=== PATIENT | female | born 1990 | race Caucasian/White ===

== ENCOUNTER 2016-07-22 09:15 | Emergency (ER) | payer OTHER ==
[2016-07-22 09:33] VITALS: BP 127/67
--- NOTE | 2016-07-22 11:06 | UC ---
Throat Pain/Nasal Raudel HPI - HPI Summary HPI Summary: THREE DAYS OF COUGH CONGESTION SORE THROAT. 33 WEEKS . - History of Current Complaint Chief Complaint: UCRespiratory Stated Complaint: SORE THROAT/CONGESTION Time Seen by Provider: 07/22/16 10:19 Hx Obtained From: Patient Hx Last Menstrual Period: 11/13/15 Onset/Duration: Gradual Onset, Lasting Days, Still Present Severity: Moderate Cough: Nonproductive Associated Signs & Symptoms: Positive: Sinus Discomfort, Nasal Discharge - Epiglottits Risk Factors Epiglottis Risk Factors: Negative - Allergies/Home Medications Allergies/Adverse Reactions: Allergies Allergy/AdvReac Type Severity Reaction Status Date / Time Penicillins Allergy Hives Verified 07/22/16 09:33 PMH/Surg Hx/FS Hx/Imm Hx Previously Healthy: Yes - Surgical History Surgical History: Yes Surgery Procedure, Year, and Place: ectopic 2009 with right fallopian tube, cholecystectomy 2011, tonsils - Family History Known Family History: Positive: Other - denies FMH o fectopic Negative: Respiratory Disease - Social History Occupation: Employed Full-time Lives: With Family Alcohol Use: None Substance Use Type: None Smoking Status (MU): Former Smoker Length of Time of Smoking/Using Tobacco: 5 yrs When Did the Patient Quit Smoking/Using Tobacco: 2016 Review of Systems Constitutional: Fatigue Skin: Negative Eyes: Negative ENT: Sore Throat Respiratory: Cough Cardiovascular: Negative Gastrointestinal: Negative Genitourinary: Negative Motor: Negative Neurovascular: Negative Musculoskeletal: Negative Neurological: Negative Psychological: Negative All Other Systems Reviewed And Are Negative: Yes Physical Exam Triage Information Reviewed: Yes Appearance: Well-Appearing, No Pain Distress, Well-Nourished Vital Signs: Initial Vital Signs Temp 98.5 F 07/22/16 09:27 Pulse 108 07/22/16 09:27 Resp 16 07/22/16 09:27 BP 127/67 07/22/16 09:27 Pulse Ox 99 07/22/16 09:27 Vital Signs Reviewed: Yes Eye Exam: Normal ENT: Positive: Hearing grossly normal, Pharyngeal erythema, Nasal congestion, TMs normal Dental Exam: Normal Neck exam: Normal Neck: Positive: Supple, Nontender, No Lymphadenopathy Respiratory Exam: Normal Respiratory: Positive: Chest non-tender, Lungs clear, Normal breath sounds, No respiratory distress, No accessory muscle use Cardiovascular Exam: Normal Cardiovascular: Positive: RRR, No Murmur, Pulses Normal, Brisk Capillary Refill Abdominal Exam: Normal Abdomen Description: Positive: Nontender, No Organomegaly Musculoskeletal Exam: Normal Musculoskeletal: Positive: Strength Intact, ROM Intact Neurological Exam: Normal Psychological Exam: Normal Psychological: Positive: Normal Response To Family Skin Exam: Normal Throat Pain/Nasal Course/Dx - Differential Dx/Diagnosis Differential Diagnosis/HQI/PQRI: Sinusitis, Tonsillitis, URI Provider Diagnoses: UPPER RESPIRATORY INFECTION Discharge - Discharge Plan Condition: Stable Disposition: HOME Patient Education Materials: Upper Respiratory Infection (ED), Viral Syndrome ( ED) Referrals: Scar Payan MD [Primary Care Provider] -
== END 2016-07-22 11:07 | disposition home or self-care (01) ==
LOC: UCCORT 09:15
DX: O26.893 Other specified pregnancy related conditions, third trimester (principal); Z3A.33 33 weeks gestation of pregnancy; J06.9 Acute upper respiratory infection, unspecified; Z88.0 Allergy status to penicillin; Z87.891 Personal history of nicotine dependence
CPT/HCPCS: 87502; 87651; 99211; G0463

== ENCOUNTER 2016-11-21 13:35 | Emergency (ER) | payer OTHER ==
[2016-11-21 13:47] VITALS: BP 127/88
[2016-11-21] MEDS ORDERED: Acetaminophen TAB* 325 MG PO ONE (16:48)
--- NOTE | 2016-11-21 17:12 | UC ---
Jaime Oleary Alfonso, scribed for Gita Jimenez MD on 11/21/16 at 1635 . Abdominal Pain Female HPI - HPI Summary HPI Summary: This patient is a 26 year old F presenting to [facility] with a chief complaint of Left back and llq cramping since one week ago. The pain comes in intermittent episodes once or twice a day. The pain radiates to her back. Pt rates the pain 4 /10 in severity. Pain intermittent. Unable to get comfortable. Symptoms aggravated and alleviated by nothing. No analgesia taken. Symptoms not aggravated by breathing, no SOB. Pt reports chills, nausea (constant) increases with pain. No vomiting. Pt denies fever, loss of appetite, diarrhea, melena, cough,sob, and vaginal discharge. No discharge, no odor. Denies recent trauma. Pt delivered vaginally on 09/14/16. Denies complications with . Pt is . Pt had her first menses since the 3 days ago - very minimal - no ongoing bleeding. . Tobacco abuse disorder. FHx of renal calculi in sister. PSHx of ectopic in 2009 and cholecystectomy in 2011. Patients medication reviewed this visit. - History of Current Complaint Chief Complaint: UCAbdominalPain Stated Complaint: ABDOMEN PAIN Hx Obtained From: Patient ?: No Onset/Duration: Sudden Onset, Lasting Weeks - 1, Still Present Timing: Intermittent Episodes Lasting: - Once to twice a day. Severity Initially: Moderate Severity Currently: Moderate Pain Intensity: 4 Pain Scale Used: 0-10 Numeric Location: Discrete At: LLQ Radiates: Yes Radiates to: Back Character: Cramping Aggravating Factor(s): Nothing Alleviating Factor(s): Nothing Associated Signs and Symptoms: Positive: Nausea, Other: - Positive chills, nausea (constant), and insomnia; negative fever, loss of appetite, diarrhea, melena, and vaginal discharge.. Negative: Diaphoresis, Fever, Cough, Vomiting Allergies/Adverse Reactions: Allergies Allergy/AdvReac Type Severity Reaction Status Date / Time Penicillins Allergy Hives Verified 11/21/16 13:47 PMH/Surg Hx/FS Hx/Imm Hx Previously Healthy: Yes - Surgical History Surgical History: Yes Surgery Procedure, Year, and Place: ectopic 2009 with right fallopian tube, cholecystectomy 2011, tonsils - Family History Known Family History: Positive: Other - Positive FHx of renal calculi in sister ; neg ectopic Negative: Respiratory Disease - Social History Lives: With Family Alcohol Use: None Substance Use Type: None Smoking Status (MU): Former Smoker Length of Time of Smoking/Using Tobacco: 5 yrs When Did the Patient Quit Smoking/Using Tobacco: 2015 Review of Systems Constitutional: Chills, Other - Negative fever Skin: Negative Eyes: Negative ENT: Negative Respiratory: Negative Cardiovascular: Negative Gastrointestinal: Abdominal Pain - LLQ cramping, Nausea, Other - Negative diarrhea, and melena. Genitourinary: Other - Negative vaginal discharge. Motor: Negative Neurovascular: Negative Musculoskeletal: Negative Neurological: Other - Positive insomnia; negative loss of appetite Psychological: Negative All Other Systems Reviewed And Are Negative: Yes Physical Exam Triage Information Reviewed: Yes Appearance: Well-Appearing, No Pain Distress, Well-Nourished Vital Signs: Initial Vital Signs Temp 98.5 F 11/21/16 13:41 Pulse 81 11/21/16 13:41 Resp 18 11/21/16 13:41 BP 127/88 11/21/16 13:41 Pulse Ox 98 11/21/16 13:41 Vital Signs Reviewed: Yes Eye Exam: Normal ENT Exam: Normal Dental Exam: Normal Neck exam: Normal Respiratory: Positive: Chest non-tender, Lungs clear, Normal breath sounds, No respiratory distress, No accessory muscle use Cardiovascular: Positive: RRR, No Murmur, Pulses Normal Abdomen Description: Positive: CVA Tenderness (L) - mild, Other: - m. Negative : Nontender - mild LLQ no guarding no rebound abd soft + BS Bowel Sounds: Positive: Present Musculoskeletal Exam: Normal Neurological Exam: Normal Neurological: Positive: Alert Psychological Exam: Normal Skin Exam: Normal Diagnostics - Radiology CT A/P Radiology Interpretation Completed By: Radiologist - NO HYDRONEPHROSIS OR NEPHROLITHIASIS. Re-Evaluation - Re-Evaluation First Eval Re-Evaluation Time: 17:47 Change: Improved Comment: Pt pain improved with Tylenol. Labs and imaging studies were reviewed. Pt understands and agrees with d/c plan. Pt comfortable and in agreement with plan. Has PCP appt on Monday Abd Pain Female Course/Dx - Course Course Of Treatment: 26 year old F presents to the [facility] with a CC of Pain in LLQ with radiation to L flank x approx 1 week. Sx intermittent. Pt with nausea, no vomiting. No fevers, chills. No rash. No h/o similar. sister wth renal colic. The pain comes in intermittent episodes once or twice a day. Denies recent trauma. Pt delivered vaginally on 09/14/16. Denies complications with . Pt is . Pt had her first menses since the 3 days ago. Differential includes renal colic, musculoskeletal pain. Will give APAP ( breast feeding). urinalysis. cbc. cmp. CT a/p. If neg for stone - will d/c with pcp as pt well appearing. Pt comfortable and in agreement with plan. CT A /P reviewed. No clear etiology. pain improved. labs pending. pt has PCP f/u tomorrow. return precautions discussed. pt comfortable and in agreement with plan - Differential Dx/Diagnosis Provider Diagnoses: flank pain Discharge - Discharge Plan Condition: Stable Disposition: HOME Patient Education Materials: Flank Pain (ED) Forms: *Work Release Referrals: Scar Payan MD [Primary Care Provider] - Additional Instructions: - Okay to take tylenol every 6 hours as needed for pain. Take with food - Okay to apply moist heat to your left back - Keep your appointment with your doctor tomorrow- they will be able to review your lab results from today - If you develop increased of uncontrolled pain, vomiting, fever, chill or any other questions - call your doctor or go the emergency department The documentation as recorded by the Jaime burr Alfonso accurately reflects the service I personally performed and the decisions made by me, Gita Jimenez MD.
--- NOTE | 2016-11-21 17:27 | RAD ---
CLINICAL HISTORY: Left flank pain, microscopic hematuria COMPARISON: None TECHNIQUE: Multiple contiguous axial CT scans were obtained of the abdomen and pelvis, without intravenous contrast enhancement. Coronal and sagittal multiplanar reformations are submitted for review. Oral contrast was not administered. FINDINGS: The study is limited by the lack of intravenous contrast. This limits evaluation of the solid organs and vasculature. LUNG BASES: The lung bases are clear. LIVER: The liver is normal in shape, size, contour, and attenuation. BILE DUCTS: There is no intrahepatic or extrahepatic biliary dilatation. GALLBLADDER: The gallbladder is not visualized. Surgical clips are noted in the gallbladder fossa. PANCREAS: The pancreas is normal, without mass or ductal dilatation. SPLEEN: Normal in size and appearance. UPPER GI TRACT: Evaluation of the gastrointestinal tract is limited by incomplete gastric distention. The upper GI tract is unremarkable. SMALL BOWEL AND MESENTERY: The small bowel is normal in contour, course, and caliber. There is no obstruction or dilatation. COLON: The colon is normal in contour, course, caliber. There is no pericolonic inflammatory change. There is a tubular, vermiform, hollow viscus that is blind ending, and originates from the cecum, consistent with a normal appendix. There is no periappendiceal inflammatory change. This is best seen on coronal images 43 through 48. ADRENALS: Normal bilaterally. KIDNEYS: The kidneys are normal in shape, size, contour, and axis. There is no hydronephrosis or nephrolithiasis. BLADDER: The bladder is smooth in contour. PELVIC ORGANS: The uterus and adnexa are grossly normal for technique. AORTA: The aorta is normal. IVC: Unremarkable LYMPH NODES: There is no lymphadenopathy by size criteria. ABDOMINAL WALL: There is no evidence for abdominal wall hernia. BONES AND SOFT TISSUES: There are mild diffuse degenerative changes. OTHER: None IMPRESSION: NO HYDRONEPHROSIS OR NEPHROLITHIASIS.
[2016-11-22 11:00] LABS: Hematocrit 42 % (35-47); Hemoglobin 13.7 g/dl (12.0-16.0); Mean Corpuscular HGB Conc 33 g/dl (31-36); Mean Corpuscular Hemoglobin 31 pg (27-31); Mean Corpuscular Volume 93 fL (80-97); Mean Platelet Volume 9 um3 (7.4-10.4); Red Blood Count 4.45 10^6/ul (4.0-5.4); Red Cell Distribution Width 15 % (10.5-15)
[2016-11-22 11:39] LABS: Albumin 4.4 g/dL (3.2-5.2); BUN/Creatinine Ratio 24.7 (8-20); Calcium 9.2 mg/dL (8.6-10.3); EGFR African American 102.4 (>60); EGFR Non-African American 79.6 (>60); Globulin 2.4 g/dL (2-4); Potassium 3.9 mmol/L (3.5-5.0); Total Bilirubin 0.3 mg/dL (0.2-1.0); Total Protein 6.8 g/dL (6.4-8.9)
== END 2016-11-21 18:00 | disposition home or self-care (01) ==
LOC: UCEAST 13:35
DX: R10.9 Unspecified abdominal pain (principal); Z87.891 Personal history of nicotine dependence
CPT/HCPCS: 36415; 74176; 80053; 81003; 84702; 85025; 99211; A9270-GY; G0463

== ENCOUNTER 2016-11-25 11:50 | Emergency (ER) | payer OTHER ==
[2016-11-25] MEDS ORDERED: Ondansetron ODT TAB* 4 MG PO ONE (12:45)
[2016-11-25] MEDS ORDERED: Promethazine TAB* 25 MG PO ONE (13:04)
[2016-11-25] MEDS ORDERED: Ketorolac INJ* 30 MG/ML 1 ML VIAL IV PUSH ONE (13:43)
[2016-11-25 13:46] VITALS: BP 146/91
[2016-11-25] MEDS ORDERED: NS 0.9% 1000 ML* 1,000 ML IV ONE (13:47)
--- NOTE | 2016-11-25 13:56 | UC ---
Abdominal Pain Female HPI - HPI Summary HPI Summary: TWO WEEKS OF DIFFUSE WORSENING ABDOMINAL PAIN AND INTERMITTENT FEVER. HAS HAD WORSENING NAUSEA. SEEN HERE ON 11/[address] HAD VAGINAL 10 WEEKS AGO; CURRENTLY BREAST FEEDING. HISTORY OF ECTOPIC IN 2009. - History of Current Complaint Chief Complaint: UCAbdominalPain Stated Complaint: ABDOMINAL PAIN,NAUSEA Time Seen by Provider: 11/25/16 12:38 Hx Obtained From: Patient Hx Last Menstrual Period: Breast feeding Onset/Duration: Gradual Onset, Lasting Weeks, Still Present Severity Initially: Moderate Severity Currently: Moderate Location: Diffuse Radiates: No Character: Burning, Cramping Aggravating Factor(s): Movement Alleviating Factor(s): Nothing Associated Signs and Symptoms: Positive: Diaphoresis, Fever, Nausea, Vomiting. Negative: Cough, Chest Pain, Blood in Stool, Urinary Symptoms, Vaginal Bleeding , Vaginal Discharge, Diarrhea - Risk Factors Ectopic Risk Factor: Prior Ectopic Allergies/Adverse Reactions: Allergies Allergy/AdvReac Type Severity Reaction Status Date / Time Penicillins Allergy Hives Verified 11/25/16 11:56 PMH/Surg Hx/FS Hx/Imm Hx Previously Healthy: Yes - Surgical History Surgical History: Yes Surgery Procedure, Year, and Place: ectopic 2009 with right fallopian tube, cholecystectomy 2011, tonsils - Family History Known Family History: Positive: Other - Positive FHx of renal calculi in sister ; neg ectopic Negative: Respiratory Disease - Social History Occupation: Employed Full-time Lives: With Family Alcohol Use: None Substance Use Type: None Smoking Status (MU): Former Smoker Length of Time of Smoking/Using Tobacco: 5 yrs When Did the Patient Quit Smoking/Using Tobacco: 2015 Review of Systems Constitutional: Fever, Chills, Fatigue Skin: Negative Eyes: Negative ENT: Negative Respiratory: Negative Cardiovascular: Negative Gastrointestinal: Abdominal Pain, Nausea Genitourinary: Negative Motor: Negative Neurovascular: Negative Musculoskeletal: Negative Neurological: Negative Psychological: Negative All Other Systems Reviewed And Are Negative: Yes Physical Exam Triage Information Reviewed: Yes Appearance: No Pain Distress, Well-Nourished, Ill-Appearing Vital Signs: Initial Vital Signs Temp 98.3 F 11/25/16 11:52 Pulse 75 11/25/16 11:52 Resp 16 11/25/16 11:52 BP 133/90 11/25/16 11:52 Pulse Ox 98 11/25/16 11:52 Vital Signs Reviewed: Yes Eye Exam: Normal ENT Exam: Normal ENT: Positive: Normal ENT inspection, Hearing grossly normal, Pharynx normal, TMs normal Dental Exam: Normal Neck exam: Normal Neck: Positive: Supple, Nontender, No Lymphadenopathy Respiratory Exam: Normal Respiratory: Positive: Chest non-tender, Lungs clear, Normal breath sounds, No respiratory distress, No accessory muscle use Cardiovascular Exam: Normal Cardiovascular: Positive: RRR, No Murmur, Pulses Normal Abdominal Exam: Other - DIFFUSE TENDERNESS Abdomen Description: Positive: No Organomegaly, Soft. Negative: Bruit, CVA Tenderness (R), CVA Tenderness (L) Bowel Sounds: Positive: Present Musculoskeletal Exam: Normal Neurological Exam: Normal Psychological Exam: Normal Skin Exam: Normal Abd Pain Female Course/Dx - Differential Dx/Diagnosis Differential Diagnosis: ACS, Appendicitis, Bowel Obstruction, Constipation, Diverticulitis, Ectopic , Hepatitis, Irritable Bowel Syndrome, Ovarian Cyst, Pancreatitis, Peptic Ulcer Disease Provider Diagnoses: ABDOMINAL PAIN - Physician Notification/Consults Discussed Care of Patient With: Johnie Sales Time Discussed With Above Provider: 13:30 Instructed by Provider To: MD Will See In ED Discharge - Discharge Plan Condition: Stable Disposition: TRANS HIGHER LVL OF CARE FAC
== END 2016-11-25 14:03 | disposition short-term general hospital (02) ==
LOC: UCEAST 11:50
DX: R10.84 Generalized abdominal pain (principal); R11.0 Nausea; Z87.891 Personal history of nicotine dependence
CPT/HCPCS: 81003; 84702; 96361; 96374; 99213; A9270-GY; G0463; J1885

== ENCOUNTER 2016-11-25 14:21 | Emergency (ER) | payer OTHER ==
[2016-11-25] MEDS ORDERED: NS 0.9% 1000 ML* 1,000 ML IV ONE (15:33)
[2016-11-25 16:09] LABS: Hematocrit 37 % (35-47); Hemoglobin 12.3 g/dl (12.0-16.0); Mean Corpuscular HGB Conc 34 g/dl (31-36); Mean Corpuscular Hemoglobin 31 pg (27-31); Mean Corpuscular Volume 93 fL (80-97); Mean Platelet Volume 9 um3 (7.4-10.4); Red Blood Count 3.96 10^6/ul (4.0-5.4); Red Cell Distribution Width 15 % (10.5-15)
--- NOTE | 2016-11-25 16:24 | RAD ---
HISTORY: Abdominal pain COMPARISONS: CT dated November 21, 2016 VIEWS: Frontal supine and upright views of the abdomen. FINDINGS: BOWEL: There is a nonspecific bowel gas pattern, with nondilated small bowel gas noted. There is a large amount of stool within the colon. CALCULI: There are no abnormal calculi. Surgical clips are noted in the right upper quadrant BONES AND SOFT TISSUES: There are no osseous abnormalities. OTHER FINDINGS: The lung bases are clear. There is no subphrenic gas. IMPRESSION: NONSPECIFIC BOWEL GAS PATTERN. LARGE AMOUNT OF STOOL WITHIN THE COLON
[2016-11-25 16:27] LABS: Albumin 3.6 g/dL (3.2-5.2); BUN/Creatinine Ratio 22.5 (8-20); C Reactive Protein 5.13 mg/L (< 5.00); Calcium 8.6 mg/dL (8.6-10.3); EGFR African American 126.1 (>60); Globulin 2.6 g/dL (2-4); Total Bilirubin 0.3 mg/dL (0.2-1.0); Total Protein 6.2 g/dL (6.4-8.9)
[2016-11-25 16:50] LABS: Potassium 4.1 mmol/L (3.5-5.0)
[2016-11-25] MEDS ORDERED: Polyethylene Glycol 3350* 17 GM PACKET PO ONE (17:27)
[2016-11-25 18:20] VITALS: BP 110/75
--- NOTE | 2016-11-25 20:17 | ED ---
Angelika Oleary Edward, scribed for Johnie Sales MD on 11/25/16 at 1526 . Abdominal Pain/Female - HPI Summary HPI Summary: 26 y/o female BIBA from [facility] c/o intermittent, waxing and waning ABD pain for three weeks. Patient had a baby 10 weeks ago. The ABD pain has been getting progressively worse. The pain starts in the epigastric region and worked its way down the ABD in the three weeks, per the nurse. The pain does not change with food. Associated sx: nausea. Denies vomiting. Patient was seen at [facility] a couple of days ago. SHx gall bladder removal and tonsillectomy. Non smoker, no ETOH, no drugs. FHx - father had a thyroid issue. - History of Current Complaint Chief Complaint: EDAbdPain Stated Complaint: ABD PAIN Time Seen by Provider: 11/25/16 15:18 Hx Obtained From: Patient Hx Last Menstrual Period: Breast feeding Onset/Duration: Gradual Onset, Lasting Weeks, Still Present Timing: Intermittent Episode Lasting Pain Scale Used: Waxing and waning Location: Epigastric - Moved its way down the ABD, Suprapubic Associated Signs and Symptoms: Positive: Nausea. Negative: Vomiting Allergies/Adverse Reactions: Allergies Allergy/AdvReac Type Severity Reaction Status Date / Time Penicillins Allergy Hives Verified 11/25/16 11:56 PMH/Surg Hx/FS Hx/Imm Hx Previously Healthy: No - Surgical History Surgery Procedure, Year, and Place: ectopic 2009 with right fallopian tube, cholecystectomy 2011, tonsils Infectious Disease History: Denies: Traveled Outside the [place] in Last 30 Days - Family History Known Family History: Positive: Other - Positive FHx of renal calculi in sister ; neg ectopic Negative: Respiratory Disease - Social History Alcohol Use: None Hx Substance Use: No Substance Use Type: Reports: None Hx Tobacco Use: Yes Smoking Status (MU): Former Smoker Length of Time of Smoking/Using Tobacco: 5 yrs Review of Systems Constitutional: Negative Eyes: Negative ENT: Negative Cardiovascular: Negative Respiratory: Negative Positive: Abdominal Pain, Nausea. Negative: Vomiting Genitourinary: Negative Musculoskeletal: Negative Skin: Negative Neurological: Negative Psychological: Normal All Other Systems Reviewed And Are Negative: Yes Physical Exam - Summary Physical Exam Summary: VITAL SIGNS:~Reviewed. GENERAL:~Patient is a well-developed and nourished female who is lying comfortable in the stretcher.~ Patient is not in any acute respiratory distress. HEAD AND FACE:~Normocephalic and atraumatic. EYES:~PERRLA, EOMI x 2, No injected conjunctiva. EARS:~Hearing grossly intact. Ear canals and tympanic membranes are WNL. MOUTH:~Oropharynx within normal limits. NECK:~Supple, trachea is midline, no adenopathy, no JVD. CHEST:~Symmetric, no tenderness at palpation LUNGS:~Clear to auscultation bilaterally. No wheezing or crackles. CVS:~RRR, S1 and S2 present, no murmurs or gallops appreciated. ABDOMEN:~Soft, non-tender. No signs of distention. Positive bowel sounds. No rebound no guarding, and no masses palpated. No abdominal bruit or pulsations. EXTREMITIES:~FROM in all major joints, no edema, no cyanosis or clubbing. NEURO:~Alert and oriented x 3. No acute neurological deficits. Speech is normal. SKIN:~Dry and warm Triage Information Reviewed: Yes Vital Signs Reviewed: Yes Diagnostics - Laboratory Result Diagrams: 11/25/16 15:55 11/25/16 15:55 Lab Statement: Any lab studies that have been ordered have been reviewed, and results considered in the medical decision making process. - Radiology ABD XRAY Xray Interpretation: Positive (See Comments) - NONSPECIFIC BOWEL GAS PATTERN. LARGE AMOUNT OF STOOL WITHIN THE COLON Radiology Interpretation Completed By: Radiologist Abdominal Pain Fem Course/Dx - Course Course Of Treatment: 26 y/o female BIBA from [facility] c/o intermittent, waxing and waning ABD pain for three weeks. Patient had a baby 10 weeks ago. The ABD pain has been getting progressively worse. The pain starts in the epigastric region and worked its way down the ABD in the three weeks, per the nurse. The pain does not change with food. Associated sx: nausea. Denies vomiting. Patient was seen at [facility] a couple of days ago. SHx gall bladder removal and tonsillectomy. Non smoker, no ETOH, no drugs. FHx - father had a thyroid issue. Test results are without any significant abnormalities. She had a abd/pel CT in november 21, 2016 for the same symptoms and was negative for intraabdominal pathology. Pt continues to have intermittent abd cramping. Therefore, she came to the ED for workup and management. Pt denies diarrhea, however, she seems constipated. ABD XR shows NONSPECIFIC BOWEL GAS PATTERN. LARGE AMOUNT OF STOOL WITHIN THE COLON. The X-ray confirms the patient was constipated, which was the possible cause of the intermittent abd cramping. Therefore the patient was given Miralex and recommended to continue the Miralex at home with increased IV fluids and f/u with PCP. The patient is hemodynamically stable and A&Ox3. - Diagnoses Provider Diagnoses: Abdominal pain, Constipation Discharge - Discharge Plan Condition: Stable Disposition: HOME Prescriptions: Polyethylene Glycol 3350* [Miralax*] 17 gm PO DAILY PRN #[id number] packet PRN Reason: Constipation Patient Education Materials: Abdominal Pain (ED), Constipation (ED) Forms: *Work Release Referrals: Scar Payan MD [Primary Care Provider] - 3 Days (Please f/u in 2-3 days) The documentation as recorded by the Angelika burr Edward accurately reflects the service I personally performed and the decisions made by Henrry pereira Walter, MD.
== END 2016-11-25 18:20 | disposition home or self-care (01) ==
LOC: ED 14:21
DX: R10.9 Unspecified abdominal pain (principal); R11.0 Nausea; K59.00 Constipation, unspecified
CPT/HCPCS: 36415; 74020; 80053; 83605; 83690; 85025; 86140; 96360; 99282; A9270-GY

== ENCOUNTER 2017-05-07 08:06 | Emergency (ER) | payer OTHER ==
[2017-05-07 08:30] VITALS: BP 128/74
--- NOTE | 2017-05-07 09:03 | UC ---
FLU HPI - HPI Summary HPI Summary: Day 2 of sudden onset of fever, cough, and body aches did not get flu vaccine has 2 kids at home ages 7mts and 2 yes neither have had flu vaccine - History of Current Complaint Chief Complaint: UCGeneralIllness Stated Complaint: SOB,FEVER,CHILLS,NAUSEA Time Seen by Provider: 05/07/17 08:49 Hx Obtained From: Patient Hx Last Menstrual Period: 05/07/17 ?: No Onset/Duration: Sudden Onset, Lasting Days - this is day2, Still Present Severity Currently: Moderate Severity Initially: Moderate Associated Signs & Symptoms: Positive: Fever, Myalgia, Cough, Sore Throat, Nasal Congestion, Headache - Allergy/Home Medications Allergies/Adverse Reactions: Allergies Allergy/AdvReac Type Severity Reaction Status Date / Time Penicillins Allergy Hives Verified 05/07/17 08:25 Home Medications: Home Medications Levothyroxine TAB* [Synthroid 25 MCG TAB*] 25 mcg DAILY 05/07/17 [History Confirmed 05/07/17] PMH/Surg Hx/FS Hx/Imm Hx Previously Healthy: No - breast feeding Endocrine History: Hypothyroidism - Surgical History Surgical History: Yes Surgery Procedure, Year, and Place: ectopic 2009 with right fallopian tube, cholecystectomy 2011, tonsils - Family History Known Family History: Positive: Other - Positive FHx of renal calculi in sister ; neg ectopic Negative: Respiratory Disease - Social History Occupation: Employed Full-time - sander and polisher and commodity supervisor Lives: With Family Alcohol Use: Occasionally Substance Use Type: None Smoking Status (MU): Former Smoker Length of Time of Smoking/Using Tobacco: 5 yrs When Did the Patient Quit Smoking/Using Tobacco: 2016 - Immunization History Most Recent Influenza Vaccination: no 2017 Review of Systems Constitutional: Fever, Chills, Fatigue Skin: Negative Eyes: Negative ENT: Sore Throat, Nasal Discharge, Sinus Congestion Respiratory: Cough Cardiovascular: Negative Gastrointestinal: Negative Genitourinary: Negative Motor: Negative Neurovascular: Negative Musculoskeletal: Arthralgia, Myalgia Neurological: Headache Psychological: Negative Is Patient Immunocompromised?: No All Other Systems Reviewed And Are Negative: Yes Physical Exam Triage Information Reviewed: Yes Appearance: Well-Nourished, Ill-Appearing, Pain Distress Vital Signs: Initial Vital Signs Temp 99.7 F 05/07/17 08:26 Pulse 107 05/07/17 08:26 Resp 24 05/07/17 08:26 BP 128/74 05/07/17 08:26 Pulse Ox 99 05/07/17 08:26 Vital Signs Reviewed: Yes Eye Exam: Normal Eyes: Positive: Conjunctiva Clear ENT Exam: Normal ENT: Positive: Normal ENT inspection, Hearing grossly normal, Pharynx normal, Nasal congestion, Nasal drainage, TMs normal, Uvula midline. Negative: Tonsillar swelling, Tonsillar exudate, Trismus, Muffled voice, Hoarse voice, Sinus tenderness Dental Exam: Normal Neck exam: Normal Neck: Positive: Supple, Nontender, No Lymphadenopathy Respiratory Exam: Normal Respiratory: Positive: Chest non-tender, Lungs clear, Normal breath sounds, No respiratory distress, No accessory muscle use Cardiovascular Exam: Normal Cardiovascular: Positive: RRR, No Murmur, Pulses Normal, Brisk Capillary Refill Musculoskeletal Exam: Normal Musculoskeletal: Positive: Strength Intact, ROM Intact, No Edema Neurological Exam: Normal Neurological: Positive: Alert, Muscle Tone Normal Psychological Exam: Normal Skin Exam: Normal Flu Course/Dx - Course Course Of Treatment: tamiflu, robitussin Codiene tylenol ibuprofen increase fluids follow with pcp - Differential Dx/Diagnosis Provider Diagnoses: Influenza A Discharge - Discharge Plan Condition: Stable Disposition: HOME Prescriptions: Guaifenesin-Codeine [Guaiatussin AC] 5 - 10 syp PO Q6H PRN #60 ml MDD 40 PRN Reason: cough Oseltamivir CAP* [Tamiflu CAP*] 75 mg PO BID 5 Days #10 cap Patient Education Materials: Ibuprofen (By mouth), Influenza (ED) Referrals: Scar Payan MD [Primary Care Provider] - If Needed Additional Instructions: Both medications are excreted in breast milk---To assure your baby is not getting any of the medication please use your store breast milk---Also call the children's doctor about their exposure to Influenza.
== END 2017-05-07 09:22 | disposition home or self-care (01) ==
LOC: UCCORT 08:06
DX: J10.1 Influenza due to other identified influenza virus with other respiratory manifestations (principal); E03.9 Hypothyroidism, unspecified; Z79.899 Other long term (current) drug therapy; Z87.891 Personal history of nicotine dependence
CPT/HCPCS: 87502; 99212; G0463

== ENCOUNTER 2017-07-22 13:01 | Emergency (ER) | payer OTHER ==
--- OUTSIDE RECORDS SUMMARY | 2017-07-22 13:27 | XMS REPORT ---
:1990 External Reference #:[id number] Author Organization [facility] Address [address] [place] [address] Phone [phone] Care Team Providers Name Role Phone Scar Payan MD Care Team Information Answering Service Telephone Operator Unavailable Scar Payan MD Primary Care Physician Unavailable Payers Type Date Identification Numbers Payment Provider Subscriber Commercial Policy Number: [id number] [facility] Peng Cano PayID: [id number] [address] [place] [address] [employer] B Policy Number: [id number] Medicaid [place] Peng Cano PayID: [id number] [address] [place] [address] Problems Description No Information Family History Date Family Member(s) Problem(s) Comments Father No Current Problems Mother No Current Problems Siblings 5 First Sister Brain cancer First Sister Lung Cancer Social History Type Date Description Comments Marital Status Legal Status: Never Lives With Son Lives With Boyfriend Smoke-Free Home is smoke-free Smoke-Free Work is smoke-free Work Status Part-Time Employment Abuse No history of abuse ETOH Use Denies alcohol use Recreational Drug Use Denies Drug Use Smoking Patient is a current smoker, smokes smokes "socially" some days Daily Caffeine Consumes on average 2 cups of regular coffee per day Daily Caffeine Consumes on average 1 cup of hot tea per day Tattoo/Piercing Tattoo Tattoo/Piercing X5 Tattoo/Piercing Pierced navel Tattoo/Piercing Pierced nasal area Tattoo/Piercing Pierced ears # Partners in a Lifetime 4 STD's No STD History Allergies, Adverse Reactions, Alerts Date Description Reaction Status Severity Comments 02/03/2016 Penicillin Urticaria active Medications Medication Date Status Form Strength Qnty SIG Indications Ordering Provider Lexapro // Active Unknown 0000 Synthroid / Active Tablets 25mcg Unknown 0000 Azithromycin 08/12/ Hx Tablets 500mg 6tabs take two 2016 tablets Aiax at once e, CNM and then one tablet every day Metronidazole 08/03/ Hx Tablets 500mg 14tabs 1 by 2016 - mouth Aixa 08/12/ twice a e, CNM 2016 day Fluconazole 08/03/ Hx Tablets 150mg 1tabs take one Dmitry2016 - tab now Aixa 08/12/ and one e, CNM 2016 in 4 days Hydrocortisone 06/28/ Hx Cream 2.5% 1tube Apply In [facility] 2016 - 1gm Mahesh Wilkinson 12/08/ twice a 2016 day as needed 06/24/ Hx Tablets 14-0.4mg 90tabs take one [facility] 2016 every Mahesh Wilkinson day Anucort-HC 06/24/ Hx Suppository 25mg 1pack Apply In [facility] 2016 at night Mahesh Wilkinson as needed Senokot 06/24/ Hx Tablets 8.6mg 20tabs 2 tab by In [facility] 2016 - mouth Mahesh Wilkinson 12/08/ every 2016 day as needed Diclegis / Hx Tablets DR 10-10mg Unknown 0000 - 2016 Cetirizine HCL / Hx Tablets 10mg Unknown 0000 Escitalopram / Hx Tablets 10mg Unknown Oxalate 0000 - 2016 / Hx Unknown 0000 Immunizations CPT Code Status Date Vaccine Lot # [id number] Given 08/01/2016 tetanus, diptheria, acellular pertussis / over 7 [id number] years/intra mus Vital Signs Date Vital Result Comment 07/21/2017 Height 64.50 inches 5'4.50" Weight 222.00 lb BP Systolic 130 mmHg BP Diastolic 82 mmHg BMI (Body Mass Index) 37.5 kg/m2 05/19/2017 Height 64.50 inches 5'4.50" Weight 229.50 lb BP Systolic 18 mmHg BP Diastolic 60 mmHg BMI (Body Mass Index) 38.8 kg/m2 12/08/2016 Height 64.50 inches 5'4.50" Weight 225.00 lb BP Systolic 110 mmHg BP Diastolic 62 mmHg BMI (Body Mass Index) 38.0 kg/m2 09/12/2016 Height 64.50 inches 5'4.50" Weight 241.00 lb BP Systolic 118 mmHg BP Diastolic 60 mmHg BMI (Body Mass Index) 40.7 kg/m2 09/07/2016 Height 64.50 inches 5'4.50" Weight 242.00 lb BP Systolic 120 mmHg BP Diastolic 70 mmHg BMI (Body Mass Index) 40.9 kg/m2 08/29/2016 Height 64.50 inches 5'4.50" Weight 232.00 lb BP Systolic 130 mmHg BP Diastolic 70 mmHg BMI (Body Mass Index) 39.2 kg/m2 08/22/2016 Height 64.50 inches 5'4.50" Weight 231.00 lb BP Systolic 120 mmHg BP Diastolic 70 mmHg BMI (Body Mass Index) 39.0 kg/m2 07/18/2016 Height 64.50 inches 5'4.50" Weight 220.00 lb BP Systolic 130 mmHg BP Diastolic 60 mmHg BMI (Body Mass Index) 37.2 kg/m2 06/24/2016 Height 64.50 inches 5'4.50" Weight 212.00 lb BP Systolic 120 mmHg BP Diastolic 60 mmHg BMI (Body Mass Index) 35.8 kg/m2 05/30/2016 Height 64.50 inches 5'4.50" Weight 204.00 lb BP Systolic 120 mmHg BP Diastolic 60 mmHg BMI (Body Mass Index) 34.5 kg/m2 05/04/2016 Height 64.50 inches 5'4.50" Weight 198.00 lb BP Systolic 120 mmHg BP Diastolic 60 mmHg BMI (Body Mass Index) 33.5 kg/m2 04/04/2016 Height 64.50 inches 5'4.50" Weight 188.00 lb BP Systolic 104 mmHg BP Diastolic 56 mmHg BMI (Body Mass Index) 31.8 kg/m2 02/08/2016 Height 64.50 inches 5'4.50" Weight 242.00 lb BP Systolic 110 mmHg BP Diastolic 62 mmHg BMI (Body Mass Index) 40.9 kg/m2 02/08/2016 Height 64.50 inches 5'4.50" Weight 231.00 lb BP Systolic 120 mmHg BP Diastolic 60 mmHg BMI (Body Mass Index) 39.0 kg/m2 02/08/2016 Height 64.50 inches 5'4.50" Weight 228.00 lb BP Systolic 110 mmHg BP Diastolic 62 mmHg BMI (Body Mass Index) 38.5 kg/m2 02/08/2016 Height 64.50 inches 5'4.50" Weight 183.00 lb BP Systolic 122 mmHg BP Diastolic 64 mmHg BMI (Body Mass Index) 30.9 kg/m2 02/08/2016 Height 64.5 inches 5'4.50" Weight 181.00 lb BP Systolic 110 mmHg BP Diastolic 62 mmHg BMI (Body Mass Index) 30.6 kg/m2 02/03/2016 Height 64.5 inches 5'4.50" Weight 182.00 lb BP Systolic 120 mmHg BP Diastolic 60 mmHg BMI (Body Mass Index) 30.8 kg/m2 Results Test Date Test Result H/L Range Note Laboratory test finding 06/09/2017 HCG,Serum NEGATIVE (Negative) 1, 2 (Qualitative) CBC 09/13/2016 White Blood Count 8.0 K/uL 3.1-10.7 3 Red Blood Count 3.78 M/uL Low 3.90-5.40 3 Hemoglobin 11.6 gm/dL 11.6-15.8 3 Hematocrit 34.6 % Low 36.0-46.1 3 Mean Cell Volume 91.5 fl 80.9-99.0 3 Mean Corpuscular HGB 30.7 pg 25.9-32.7 3 Mean Corpuscular HGB Conc 33.5 g/dL 30.8-34.3 3 Platelet Count 176 K/uL 150-400 3 Red Cell Distri Width %CV 15.0 % High 11.7-14.4 3 Mean Platelet Volume 11.6 fL 8.9-12.4 3 Type And Screen 09/13/2016 Patient Blood Type A POS 3 Antibody Screen Negative Negative 3 Laboratory test 09/13/2016 Treponema Antibody Negative Negative 4, 5 finding Lynn Genital Culture W08/29/2016 Gram Stain GRAM STAIN INDIC 6, 7 Gram Stain <SEE NOTE> Gram Stain MODERATE GR POS. <SEE NOTE> 6, 8 Gram Stain NO WHITE BLOOD C <SEE NOTE> 6, 9 Genital Culture GENITAL VINICIO 6 Vaginal Strep Screen 08/15/2016 Vaginal Strep Screen STREP. AGALACTIA 6 , 10 <SEE NOTE> Quantity MANY 6 Recommended Therapy: PENICILLIN OR AM <SEE NOTE> 6, 11 Ast-GP67 08/15/2016 Penicillin G <=0.12 6 Tetracycline >=16 6 Ampicillin <=0.25 6 Clindamycin <=0.25 6 Moxifloxacin <=0.25 6 Levofloxacin 0.5 6 Vancomycin <=0.5 6 Urinalysis With Microscopic 08/13/2016 Urine Color YELLOW Yellow 12 Urine Clarity CLEAR Clear 12 Urine Glucose - Dipstick NEGATIVE mg/dL Negative 12 Urine Bilirubin - Dipstick NEGATIVE Negative 12 Urine Ketone NEGATIVE mg/dL Negative 12 Urine Specific Offerman 1.020 1.010-1.030 12 Urine Blood NEGATIVE Negative 12 Urine PH 6.5 6.5-7.5 12 Urine Protein - Dipstick NEGATIVE mg/dL Negative 12 Urine Urobilinogen - Dipstick 0.2 E.U./dL 0.2-1.0 12 Urine Nitrite - Dipstick NEGATIVE Negative 12 Urine Leuk Esterase TRACE Negative 12 Urine RBC NONE SEEN rbc/hpf 0-2 12 Urine WBC 0-2 wbc/hpf 0-7 12 Urine Epithelial Cells MODERATE /lpf None Seen 12, 13 Urine Bacteria FEW None Seen 12 Source: URINE, CLEAN CAT <SEE NOTE> 12, 14 Laboratory test 08/01/2016 Gardnerella/Yeast: Vaginal SEE RESULT 15 finding Dna BELOW Glucose,1 HR Post 06/24/2016 1 HR Glucose,Post Glucola 83 mg/dL -138 16 , 17 Glucola 1 Hour Urine Glucose NEGATIVE % Negative 16 1 Hour Urine Ketone TRACE Negative 16 Hemoglobin/Hematocrit 06/24/2016 Hemoglobin 11.5 gm/dL Low 11.6-15.8 16 Hematocrit 34.5 % Low 36.0-46.1 16 Ua RFX Micro & Culture II 06/24/2016 Urine Color YELLOW Yellow 16 Urine Clarity CLEAR Clear 16 Urine Glucose - Dipstick NEGATIVE mg/dL Negative 16 Urine Bilirubin - Dipstick NEGATIVE Negative 16 Urine Ketone TRACE mg/dL High Negative 16 Urine Specific Offerman >=1.030 1.010-1.030 16 Urine Blood NEGATIVE Negative 16 Urine PH 6.0 Low 6.5-7.5 16 Urine Protein - Dipstick NEGATIVE mg/dL Negative 16 Urine Urobilinogen - Dipstick 0.2 E.U./dL 0.2-1.0 16 Urine Nitrite - Dipstick NEGATIVE Negative 16 Urine Leuk Esterase NEGATIVE Negative 16 Source: URINE, CLEAN CAT <SEE 16, 18 NOTE> Urine Culture 06/24/2016 Urine Culture URETHRAL VINICIO 16 Quantity > 100,000 CFU/mL 16, 19 Ua RFX Micro & Culture II 05/21/2016 Urine Color YELLOW Yellow 20 Urine Clarity CLEAR Clear 20 Urine Glucose - Dipstick NEGATIVE mg/dL Negative 20 Urine Bilirubin - Dipstick NEGATIVE Negative 20 Urine Ketone NEGATIVE mg/dL Negative 20 Urine Specific Offerman 1.010 1.010-1.030 20 Urine Blood NEGATIVE Negative 20 Urine PH 7.5 6.5-7.5 20 Urine Protein - Dipstick NEGATIVE mg/dL Negative 20 Urine Urobilinogen - Dipstick 0.2 E.U./dL 0.2-1.0 20 Urine Nitrite - Dipstick NEGATIVE Negative 20 Urine Leuk Esterase NEGATIVE Negative 20 Source: URINE, CLEAN CAT <SEE NOTE> 20, 21 Comprehensive Metabolic Panel 05/21/2016 Glucose 62 mg/dL Low 74-106 20 BUN 6 mg/dL Low 7-18 20 Creatinine 0.5 mg/dL Low 0.6-1.3 20 Glom Filtration Rate, Estimate >60 mL/min >60 20 If >60 mL/min >60 20, 22 BUN/Creat 12.0 ratio 20 Sodium 142 mmol/L 136-145 20 Potassium 3.5 mmol/L 3.5-5.1 20 Chloride 109 mmol/L High 98-107 20 Carbon Dioxide 27 mmol/L 21-32 20 Anion Gap 6 mEq/L Low 8-16 20 Calcium 8.1 mg/dL Low 8.5-10.1 20 Total Protein 6.0 g/dL Low 6.4-8.2 20 Albumin 2.6 g/dL Low 3.4-5.0 20 Globulin 3.4 g/dL 1.9-4.3 20 Alb/Glob 0.8 ratio 20 Bilirubin,Total 0.3 mg/dL 0.2-1.0 20 Sgot/Ast 11 U/L Low 15-37 20, 23 SGPT/Alt 15 U/L 12-78 20 Alkaline Phosphatase 33 U/L Low 45-117 20 Afp,Tetra Profile 04/04/2016 Afp Tetra REF#[id number] 24, 25 CBS W/Automated Diff 03/30/2016 White Blood Count 8.9 K/uL 3.1-10.7 26 Red Blood Count 3.83 M/uL Low 3.90-5.40 26 Hemoglobin 12.1 gm/dL 11.6-15.8 26 Hematocrit 35.2 % Low 36.0-46.1 26 Mean Cell Volume 91.9 fl 80.9-99.0 26 Mean Corpuscular HGB 31.6 pg 25.9-32.7 26 Mean Corpuscular HGB Conc 34.4 g/dL High 30.8-34.3 26 Platelet Count 217 K/uL 155-360 26 Red Cell Distri Width SD 42.2 fl 3-47 26 Red Cell Distri Width %CV 12.9 % 11.7-14.4 26 Mean Platelet Volume 10.2 fL 8.9-12.4 26 Neut% 65.8 % 40.4-72.8 26 Lymph % 26.7 % 17.0-46.1 26 Canyon % 6.5 % 4.3-13.2 26 Eo% 0.8 % 0.0-6.6 26 Bas% 0.2 % 0.0-1.1 26 Neut# 5.86 K/uL 1.8-7.0 26 Lymph # 2.38 K/uL 1.8-7.0 26 Canyon # 0.58 K/uL 0.3-0.9 26 Eos # 0.07 K/uL 0.0-0.5 26 Baso # 0.02 K/uL 0.0-0.1 26 Type And Screen 03/30/2016 Patient Blood Type A POS 26 Antibody Screen Negative Negative 26 Urine Culture 03/30/2016 Urine Culture NO GROWTH: FINAL , 27 <SEE NOTE> Ua RFX Micro & 03/30/2016 Urine Color YELLOW Yellow 26 Culture II Urine Clarity CLEAR Clear 26 Urine Glucose - Dipstick NEGATIVE mg/dL Negative 26 Urine Bilirubin - Dipstick NEGATIVE Negative 26 Urine Ketone NEGATIVE mg/dL Negative 26 Urine Specific Offerman >=1.030 1.010-1.030 26 Urine Blood NEGATIVE Negative 26 Urine PH 6.0 Low 6.5-7.5 26 Urine Protein - Dipstick NEGATIVE mg/dL Negative 26 Urine Urobilinogen - Dipstick 0.2 E.U./dL 0.2-1.0 26 Urine Nitrite - Dipstick NEGATIVE Negative 26 Urine Leuk Esterase NEGATIVE Negative 26 Source: URINE, CLEAN CAT <SEE , 28 NOTE> Laboratory test finding 03/30/2016 Slide Review (SEE NOTE) , 29 Laboratory test finding 03/30/2016 Lead,Blood (Adult) <1 g/dL 0-19 26, 30 Varicella-Zoster Virus IgG Ab 685 index Immune >165 26, 31 Antibody Detection-Hiv1/2 SCRN Nonreactive Nonreactive , 32 Rubella Igg Antibody 03/30/2016 Rubella IgG Antibody Reactive Reactive 26 Rubella IgG Iu/ml 30.0 IU/mL >=10.0 , 33 Laboratory test 03/30/2016 Hepatitis B Surface Nonreactive Nonreactive , 34 finding Antigen Treponema Antibody Lynn Nonreactive Nonreactive , 35 Genital Culture W/ Gram 03/02/2016 Gram Stain GRAM STAIN INDIC <SEE 26, 36 Stain NOTE> Gram Stain MODERATE GR POS. <SEE NOTE> , 37 Gram Stain NO WHITE BLOOD C <SEE NOTE> 26, 38 Genital Culture GENITAL VINICIO 26 Chlamydia/GC Fela 03/02/2016 Chlamydia Trachomatis, Fela Negative Negative 26 Neisseria Gonorrhoeae, Fela Negative Negative 26 Please note: (SEE NOTE) , 39 1 Z32.01 2 Method: Quidel QuickVue One-Step Immunoassay 3 41 WEEKS ; CONTRACTIONS; LEAKING FLUID 4 DELIVERY 5 Performed at: [address] [id number] Communications Lead: Marlon Robles MD, Phone: [phone] 6 Z54.58 7 GRAM STAIN INDICATES NORMAL GENITAL VINCIIO 8 MODERATE GR POS. BACILLI SUGGESTIVE OF LACTOBACILLUS SP. 9 NO WHITE BLOOD CELLS 10 STREP. AGALACTIAE (BETA GRP B) 11 PENICILLIN OR AMPICILLIN. SENSITIVITY IN PROGRESS PER REQUEST (Penicillin allergy) * This is a corrected result. * A prior result that was reported as final has been changed. * This is a corrected result. * A prior result that was reported as final has been changed. 12 36 WKS, CONTRACTIONS 13 POSSIBLE UROGENITAL CONTAMINATION. 14 URINE, CLEAN CATCH 15 SEE RESULT BELOW Name: PENG CANO : [address]: Camila Andres [facility] Acct: [id number] Unit: [id number] AGE: 25 Location: [facility] Re08/01/16 SEX: F Status: REG REF SPEC: [id number] NAKUL: 08/01/16-[address] [facility] [address]: Camila Andres CNM REQ: [id number] RECD: 08/01/160 STATUS: COMP _ SOURCE: VAGINAL SPDESC: ORDERED: Hoang,Yeast DNA, Trich DNA COMMENTS: [id number] Procedure Result Reported Site Gardnerella/Yeast: Vaginal DNA Final 08/02/16- 1523 ML Organism 1 Negative Gardnerella Organism 2 Negative Elen The presence of G. vaginalis, although suggestive, is not diagnostic for bacterial vaginosis. Results should be interpreted in conjuction with other clinical and laboratory data available. Women with vaginal discharge should be evaluated for risk factors of cervicitis and pelvic inflammatory disease, toxic shock syndrome (S.aureus), and if present, evaluated for organisms not included in this assay such as N. gonorrhoeae, C. trachomatis, Mobiluncus, Mycoplasma and/or Prevotella. Mixed infections may occur. The performance of this test on patient specimens collected during or immediately after antimicrobial therapy is unknown. The presence or absence of Elen species, or G. vaginalis cannot be used as a test for therapeutic success or failure. Trichomonas: Vaginal DNA Probe Final 08/02/16- 1523 ML Organism 1 Negative Trichomonas CONTINUED ON NEXT PAGE * ML=Testing performed at Main Lab DEPARTMENT OF PATHOLOGY, [address] [place] [address] Glenn Corea M.D. Director [facility] # [id number] Patient: PENG CANO [id number] (Continued) Specimen: [id number] Collected: 08/01/16-1014 Received: 08/01/16 (Continued) Procedure Result Reported Site Trichomonas: Vaginal DNA Probe Final (continued) 08/02/16 152 The presence or absence of T. vaginalis cannot be used as a test for therapeutic success or failure. * ML - MAIN LAB ([facility]) . END OF REPORT * ML=Testing performed at Main Lab DEPARTMENT OF PATHOLOGY, [address] [place] [address] Glenn Corea M.D. Director [facility] # [id number] 16 Z34.82 17 POST GLUCOLA 18 URINE, CLEAN CATCH 19 > 100,000 CFU/mL SPECIMEN IS A MIX OF GRAM POSITIVE ORGANISMS CONSISTENT WITH SKIN VAGINAL CONTAMINATION. SUGGEST REPEAT SPECIMEN IF CLINICALLY INDICATED. 20 24WKS PREG, ACHING PAIN FROM BELLY TO NECK 21 URINE, CLEAN CATCH 22 Note: Persistent reduction for 3 months or more in an eGFR <60 mL/min/1.73 m2 defines CKD. Patients with eGFR values >/=60 mL/min/1.73 m2 may also have CKD if evidence of persistent proteinuria is present. The original MDRD equation for estimated GFR is not valid for patients less than 18 years of age. Additional information may be found at www.kdoqi.org. 23 Values below the stated reference ranges of AST and ALT can be seen in normal populations. Clinical correlation is suggested. 24 Z34.82 25 FORWARDED TO REFERENCE LABORATORY. 26 Z34.81 27 NO GROWTH: FINAL REPORT 28 URINE, CLEAN CATCH 29 Instrument flagged sample for slide review. Less than 10% Bands seen, no other immature WBC's seen. RBC morphology essentially normal. Platelet estimate=NORMAL 30 Environmental Exposure: WHO Recommendation <20 Occupational Exposure: OSHA Lead Std 40 ABEL 30 Detection Limit=1 31 Negative <135 Equivocal 135 - 165 Positive >165 A positive result generally indicates exposure to the pathogen or administration of specific immunoglobulins, but it is not indication of active infection or stage of disease. Performed at: RN - [facility] [address] [id number] Communications Lead: Dominique Colmenares MD, Phone: [phone] 32 NOTE: A NON-REACTIVE RESULT INDICATES THAT HIV-1 AND HIV-2 ANTIBODIES HAVE NOT BEEN FOUND IN THIS PATIENT SPECIMEN. A NON-REACTIVE RESULT, HOWEVER, DOES NOT PRECLUDE PREVIOUS EXPOSURE OF INFECTION WITH HIV. * [place] STATE LAW PROHIBITS THE REDISCLOSURE OF THIS RESULT * * TO ANY UNAUTHORIZED [employer]ANCE PARTY. * 33 Values >=10.0 IU/mL are positive for IgG antibodies to rubella virus and are considered IMMUNE. 34 HBsAg not detected; does not exclude the possibility of exposure to or early acute infections with HBV. 35 Please Note: A nonreactive test result does not exclude the possibility of exposure to, or infection with syphilis. T. pallidum antibodies may be undetectable in some stages of the infection and in some clinical conditions. 36 GRAM STAIN INDICATES NORMAL GENITAL VINICIO 37 MODERATE GR POS. BACILLI SUGGESTIVE OF LACTOBACILLUS SP. 38 NO WHITE BLOOD CELLS 39 A negative result for either C. trachomatis and/or N. gonorrhoeae does not preclued an infection because results are dependent on adequate specimen collection, absence of inhibitors, and sufficient DNA to be detected. A negative result for either C. trachomatis and/or N. gonorrhoeae does not preclued an infection because results are dependent on adequate specimen collection, absence of inhibitors, and sufficient DNA to be detected. Procedures Date CPT Code Description Status 06/09/2017 62043 Echography Transvaginal Completed 09/14/2016 43573 Obstetric Care Routine Completed 09/12/2016 58635 Antepartum Care 7 Or More Visits Completed 09/12/2016 17229 Non-Stress Test Completed 09/09/2016 12457 Antepartum Care 7 Or More Visits Completed 09/07/2016 88605 Antepartum Care 7 Or More Visits Completed 09/07/2016 40287 Non-Stress Test Completed 08/29/2016 68020 Antepartum Care 7 Or More Visits Completed 08/22/2016 12575 Antepartum Care 7 Or More Visits Completed 08/15/2016 19505 Antepartum Care 7 Or More Visits Completed 08/12/2016 50705 Antepartum Care 7 Or More Visits Completed 08/01/2016 61295 Antepartum Care 7 Or More Visits Completed 07/18/2016 54866 Antepartum Care 4-6 Visits Completed 07/06/2016 77384 Antepartum Care 7 Or More Visits Completed 06/24/2016 54373 Antepartum Care 7 Or More Visits Completed 05/30/2016 14418 Antepartum Care 4-6 Visits Completed 05/04/2016 22142 Antepartum Care 4-6 Visits Completed 04/13/2016 41546 Echog. Uterus R.Time Image, Or Maternal Completed Evaluation 04/04/2016 81951 Antepartum Care 4-6 Visits Completed 03/02/2016 73127 Antepartum Care 4-6 Visits Completed 02/10/2016 73757 Ultrasound < 14 Weeks Single Or First Gestation Completed Encounters Type Date Location Provider CPT E/M Dx Office Visit 05/19/2017 11:30a Main Office In Alexia Wilkinson M.D. 87421 N92.6 Z64.1 Z30.2 Office Visit 12/08/2016 9:15a Main Office In Alexia Wilkinson M.D. 01728 F32.89 Office Visit 02/03/2016 9:30a Main Office In Alexia Wilkinson M.D. 57643 Z34.81 Z33.1 R10.9 Z3A.09 Plan of Care No Information Available
[2017-07-22 13:30] VITALS: BP 130/89
--- NOTE | 2017-07-22 13:41 | UC ---
Abdominal Pain Female HPI - HPI Summary HPI Summary: Pt presents with vomiting and diarrhea that began about 4 hours [employer]. She tells me that her son was sick with similar symptoms earlier this week and his symptoms persisted 3-4 days. So far this morning she has vomited twice and had three instances of loose stools. Also complains of generalized abdominal cramping. Is able to drink, but has not wanted to eat anything. She is scheduled to get a tubal on Monday and is worried that they may cancel this due to illness. Denies fever, chills, cough, SOB, chest pain, or dysuria. - History of Current Complaint Chief Complaint: UCAbdominalPain Stated Complaint: VOMITING/DIARRHEA Time Seen by Provider: 07/22/17 13:41 Hx Obtained From: Patient Hx Last Menstrual Period: 07/12/17 Onset/Duration: Sudden Onset Severity Initially: Moderate Severity Currently: Moderate Pain Intensity: 7 Pain Scale Used: 0-10 Numeric Location: Diffuse Character: Cramping Allergies/Adverse Reactions: Allergies Allergy/AdvReac Type Severity Reaction Status Date / Time Penicillins Allergy Hives Verified 07/22/17 13:31 PMH/Surg Hx/FS Hx/Imm Hx Previously Healthy: Yes Endocrine History: Hypothyroidism Psychological History: Anxiety, Depression - Surgical History Surgical History: Yes Surgery Procedure, Year, and Place: ectopic 2009 with right fallopian tube, cholecystectomy 2011, tonsils - Family History Known Family History: Positive: Other - Positive FHx of renal calculi in sister ; neg ectopic Negative: Respiratory Disease - Social History Occupation: Employed Full-time Lives: With Family Alcohol Use: Occasionally Substance Use Type: None Smoking Status (MU): Former Smoker Length of Time of Smoking/Using Tobacco: 5 yrs When Did the Patient Quit Smoking/Using Tobacco: 2016 - Immunization History Most Recent Influenza Vaccination: no 2017 Review of Systems Constitutional: Negative Skin: Negative Eyes: Negative ENT: Negative Respiratory: Negative Cardiovascular: Negative Gastrointestinal: Abdominal Pain, Vomiting, Diarrhea Genitourinary: Negative Musculoskeletal: Negative Neurological: Negative Psychological: Negative All Other Systems Reviewed And Are Negative: Yes Physical Exam - Summary Physical Exam Summary: GENERAL: NAD. WDWN. No pain distress. SKIN: No rashes, sores, ulcers, masses, lesions. NECK: Supple. Nontender. No lymphadenopathy. CHEST: CTAB. No r/r/w. No accessory muscle use. Breathing comfortably and in no distress. CV: RRR. Without m/r/g. Pulses intact. Brisk cap refill. ABDOMEN: Generalized mild TTP. Soft. No distention or guarding. No organomegaly. No CVA tenderness. Bowel sounds present x4. No Mcburney's point tenderness. NEURO: Alert. CN II-XII grossly intact. PSYCH: Age appropriate behavior. Triage Information Reviewed: Yes Vital Signs: Initial Vital Signs Temp 98.1 F 07/22/17 13:27 Pulse 77 07/22/17 13:27 Resp 18 07/22/17 13:27 BP 130/89 07/22/17 13:27 Pulse Ox 100 07/22/17 13:27 Abd Pain Female Course/Dx - Course Course Of Treatment: UA negative and negative. Suspect viral gastroenteritis. She says that Zofran does not work for her and is requesting something else for anti-nausea. Will try phenergan. - Differential Dx/Diagnosis Provider Diagnoses: Gastroenteritis Discharge - Discharge Plan Condition: Stable Disposition: HOME Prescriptions: Promethazine TAB* [Phenergan Tab*] 25 mg PO Q8H PRN #12 tab PRN Reason: Vomiting Patient Education Materials: Gastroenteritis (ED) Referrals: Scar Payan MD [Primary Care Provider] - Additional Instructions: If you develop a fever, shortness of breath, chest pain, new or worsening symptoms - please call your PCP or go to the ED. Your blood pressure was high at todays visit. Please see your primary provider within 4 weeks for recheck and re-evaluation. 1) If your symptoms worsen or if your develop a fever or localized pain - please go directly to the ER.
[2017-07-22] MEDS ORDERED: Promethazine TAB* 25 MG PO ONE (13:50)
== END 2017-07-22 14:20 | disposition home or self-care (01) ==
LOC: UCEAST 13:01
DX: K52.9 Noninfective gastroenteritis and colitis, unspecified (principal); Z32.02 Encounter for pregnancy test, result negative; E03.9 Hypothyroidism, unspecified; F41.9 Anxiety disorder, unspecified; F32.9 Major depressive disorder, single episode, unspecified; Z88.0 Allergy status to penicillin; Z87.891 Personal history of nicotine dependence
CPT/HCPCS: 81003; 84702; 99212; G0463

== ENCOUNTER 2017-12-29 14:46 | Emergency (ER) | payer SELFPAY ==
[2017-12-29 14:57] VITALS: BP 142/94
[2017-12-29] MEDS ORDERED: Ibuprofen TAB* 600 MG PO ONE (15:12)
--- NOTE | 2017-12-29 15:12 | UC ---
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 HAS PAIN RIGHT FOOT AND ANKLE. - History of Current Complaint Chief Complaint: UCLowerExtremity Stated Complaint: ANKLE INJURY Time Seen by Provider: 12/29/17 15:03 Hx Obtained From: Patient Hx Last Menstrual Period: 12/29/17 Onset/Duration: Sudden Onset, Lasting Hours, Still Present Severity Initially: Moderate Severity Currently: Moderate Pain Intensity: 5 Pain Scale Used: 0-10 Numeric Aggravating Factor(s): Standing, Ambulation Alleviating Factor(s): Rest Able to Bear Weight: Yes - WITH PAIN - Allergies/Home Medications Allergies/Adverse Reactions: Allergies Allergy/AdvReac Type Severity Reaction Status Date / Time Penicillins Allergy Hives Verified 12/29/17 14:57 PMH/Surg Hx/FS Hx/Imm Hx Endocrine History: Hypothyroidism - Surgical History Surgical History: Yes Surgery Procedure, Year, and Place: ectopic 2009 with right fallopian tube, cholecystectomy 2011, tonsils - Family History Known Family History: Positive: Other - Positive FHx of renal calculi in sister ; neg ectopic Negative: Hypertension, Respiratory Disease - Social History Alcohol Use: Occasionally Substance Use Type: None Smoking Status (MU): Current Some Day Smoker Length of Time of Smoking/Using Tobacco: 5 yrs When Did the Patient Quit Smoking/Using Tobacco: 2016 - Immunization History Most Recent Influenza Vaccination: no 2017 Review of Systems Constitutional: Negative Skin: Negative Respiratory: Negative Cardiovascular: Negative Gastrointestinal: Negative Musculoskeletal: Decreased ROM, Edema All Other Systems Reviewed And Are Negative: Yes Physical Exam Triage Information Reviewed: Yes Appearance: Well-Appearing, No Pain Distress, Well-Nourished Vital Signs: Initial Vital Signs Temp 98.9 F 12/29/17 14:51 Pulse 112 12/29/17 14:51 Resp 16 12/29/17 14:51 BP 142/94 12/29/17 14:51 Pulse Ox 100 12/29/17 14:51 Vital Signs Reviewed: Yes Eyes: Positive: Conjunctiva Clear ENT: Positive: Hearing grossly normal Neck: Positive: Supple Respiratory: Positive: No respiratory distress, No accessory muscle use Cardiovascular: Positive: Pulses Normal Abdomen Description: Positive: Soft Musculoskeletal: Positive: ROM Limited @ - RIGHT FOOT AND ANKLE, Edema @ - RIGHT FOOT LATERALLY, Other: - TTP RIGHT FOOT 5TH METATARSAL Neurological: Positive: Alert Skin: Negative: rashes Diagnostics - Radiology RIGHT FOOT XRAY Xray Interpretation: No Acute Changes Radiology Interpretation Completed By: Radiologist Lower Extremity Course/Dx - Differential Dx/Diagnosis Provider Diagnoses: RIGHT FOOT SPRAIN Discharge - Sign-Out/Discharge Documenting (check all that apply): Patient Departure All imaging exams completed and their final reports reviewed: Yes - Discharge Plan Condition: Stable Disposition: HOME Patient Education Materials: Foot Sprain (ED) Forms: *Work Release Referrals: Scar Payan MD [Primary Care Provider] - If Needed Additional Instructions: XRAY TODAY NEGATIVE FOR FRACTURE OR DISLOCATION. YOUR SYMPTOMS SHOULD IMPROVE SIGNIFICANTLY OVER THE NEXT 1-2 WEEKS. IF YOU DO NOT IMPROVE EXPECTED FOLLOW- UP WITH YOUR PCP. YOU MAY BENEFIT FROM REPEAT IMAGING AT THAT TIME. OTC IBUPROFEN OR ALEVE NEEDED FOR DISCOMFORT. REST, ICE, COMPRESS, ELEVATE. MCKENZIE WRAP NEEDED FOR SYMPTOM RELIEF. BE SURE TO GO THROUGH SLOW RANGE OF MOTION AND STRETCHING EXERCISES DAILY YOU ARE ABLE TO PREVENT STIFFENING UP AND MAKING THE DISCOMFORT WORSE. - Billing Disposition and Condition Condition: STABLE Disposition: Home
--- NOTE | 2017-12-29 15:37 | RAD ---
HISTORY: fall, pain 5th metatarsal COMPARISONS: None VIEWS: 3 , Frontal, lateral, and oblique views of the left foot FINDINGS: BONE DENSITY: Normal. BONES: There is no displaced fracture. JOINTS: There is no arthropathy. ALIGNMENT: There is no dislocation. SOFT TISSUES: Unremarkable. OTHER FINDINGS: None. IMPRESSION: NO ACUTE OSSEOUS INJURY. IF SYMPTOMS PERSIST, RECOMMEND REPEAT IMAGING.
== END 2017-12-29 16:28 | disposition home or self-care (01) ==
LOC: UCEAST 14:46
DX: S93.601A Unspecified sprain of right foot, initial encounter (principal); W10.8XXA Fall (on) (from) other stairs and steps, initial encounter; Y92.9 Unspecified place or not applicable; E03.9 Hypothyroidism, unspecified
CPT/HCPCS: 99212; A9270-GY; G0463

== ENCOUNTER 2018-06-20 12:23 | Emergency (ER) | payer OTHER ==
[2018-06-20 12:50] VITALS: BP 140/94
--- NOTE | 2018-06-20 13:16 | UC ---
Ear Complaint HPI - HPI Summary HPI Summary: 2 WEEKS OF LEFT EAR PAIN AND DECREASED HEARING. NO DRAINAGE. NO FEVER OR URI SX. USES QTIPS AGGRESSIVELY IN HER EARS EVERY DAY. - History of Current Complaint Chief Complaint: UCEar Stated Complaint: EAR PAIN Time Seen by Provider: 06/20/18 13:00 Hx Obtained From: Patient Hx Last Menstrual Period: 06/17/18 Onset/Duration: Gradual Onset, Lasting Weeks, Still Present Severity Initially: Moderate Severity Currently: Moderate Pain Intensity: 4 Pain Scale Used: 0-10 Numeric Aggravating Factors: Nothing Alleviating Factors: Nothing Associated Signs/Symptoms: Positive: Hearing Loss. Negative: Discharge, URI Symptoms - Allergies/Home Medications Allergies/Adverse Reactions: Allergies Allergy/AdvReac Type Severity Reaction Status Date / Time Penicillins Allergy Hives Verified 06/20/18 12:50 Home Medications: Home Medications busPIRone TAB* [Buspar TAB*] 10 mg PO BID 06/20/18 [History Confirmed 06/20/18] PMH/Surg Hx/FS Hx/Imm Hx Psychological History: Depression - Surgical History Surgical History: Yes Surgery Procedure, Year, and Place: ectopic 2009 with right fallopian tube, cholecystectomy 2011, tonsils,tubal ligation - Family History Known Family History: Positive: Other - Positive FHx of renal calculi in sister ; neg ectopic Negative: Hypertension, Respiratory Disease - Social History Alcohol Use: Occasionally Substance Use Type: None Smoking Status (MU): Current Some Day Smoker Length of Time of Smoking/Using Tobacco: 5 yrs When Did the Patient Quit Smoking/Using Tobacco: 2016 - Immunization History Most Recent Influenza Vaccination: no 2017 Review of Systems All Other Systems Reviewed And Are Negative: Yes Constitutional: Positive: Negative ENT: Positive: Ear Ache Respiratory: Positive: Negative Cardiovascular: Positive: Negative Gastrointestinal: Positive: Negative Physical Exam Triage Information Reviewed: Yes Appearance: Well-Appearing, No Pain Distress, Well-Nourished Vital Signs: Initial Vital Signs Temp 98 F 06/20/18 12:48 Pulse 108 06/20/18 12:48 Resp 20 06/20/18 12:48 BP 140/94 06/20/18 12:48 Pulse Ox 100 06/20/18 12:48 Vital Signs Reviewed: Yes Eyes: Positive: Conjunctiva Clear ENT: Positive: Hearing grossly normal, Pharynx normal, Other - RIGHT TM NORMAL. LEFT TM DULL, ERYTHEMATOUS. LEFT EAC SLIGHTLY EDEMATOUS AND ERYTHEMATOUS. NO DEBRIS Neck: Positive: Supple, Nontender, No Lymphadenopathy Respiratory: Positive: No respiratory distress, No accessory muscle use Cardiovascular: Positive: Pulses Normal Abdomen Description: Positive: Soft Musculoskeletal: Positive: No Edema Neurological: Positive: Alert Psychological: Positive: Age Appropriate Behavior Skin: Negative: Rashes Ear Complaint Course/Dx - Differential Dx/Diagnosis Provider Diagnosis: Left otitis externa, Left otitis media Discharge - Sign-Out/Discharge Documenting (check all that apply): Patient Departure All imaging exams completed and their final reports reviewed: No Studies - Discharge Plan Condition: Stable Disposition: HOME Prescriptions: Azithromyxin AUGUSTIN (NF) [Z-Augustin (Zithromax) 250 mg tabs #6] 2 tab PO .TODAY, THEN 1 DAILY #6 tab Ciproflox/Dexameth OTIC.SUSP* [Ciprodex Otic*] 4 drop LEFT EAR BID #1 bottle Patient Education Materials: Ear Infection (ED) Referrals: Scar Payan MD [Primary Care Provider] - If Needed Additional Instructions: DO NOT USE QTIPS THIS CAN ABRADE THE INSIDE OF YOUR EAR CANAL AND INCREASE YOUR RISK OF DEVELOPING INFECTION. IF YOU DO NOT IMPROVE WITH TREATMENT FOLLOW-UP WITH YOUR PCP. - Billing Disposition and Condition Condition: STABLE Disposition: Home
== END 2018-06-20 13:29 | disposition home or self-care (01) ==
LOC: UCEAST 12:23
DX: H60.92 Unspecified otitis externa, left ear (principal); H66.92 Otitis media, unspecified, left ear; F17.200 Nicotine dependence, unspecified, uncomplicated; Z88.0 Allergy status to penicillin
CPT/HCPCS: 99212; G0463